=== PATIENT | female | born 1985 | race Caucasian/White ===

== ENCOUNTER 2018-05-30 11:56 | Inpatient (IN) | payer MEDICAID ==
[~2018-05-30] VITALS: Ht 162.6 cm; Wt 68.3 kg
[2018-05-30 12:06] VITALS: Ht 162.6 cm; Wt 68.3 kg
[2018-05-30 12:07] VITALS: BP 117/70; PULSE 89; RESP 17
--- NOTE | 2018-05-30 13:35 | HP ---
Date/Time of Note Date/Time of Note DATE: 05/30/18 TIME: 13:34 OB - History Hx of Present Free Text/Dictation @39+wks GA in labor : 4 Para: 3 Care: Good Care Ultrasounds: Normal mid trimester US Obstetrical Complications: None Medical Complications: None Past Family/Social History * Past Medical, Surgical, Family and Obstetric Histories reviewed from c remy. OB Admission Exam Vital Signs Vital Signs Vital Signs Date Temp Pulse Resp B/P (MAP) Pulse Ox O2 O2 Flow FiO2 Time Delivery Rate 05/30/18 98.1 89 17 117/70 Room Air 12:07 (86) Physical Exam Abdomen: WNL Cervical Dilatation: 2cm Effacement: 50% Station: -1 Membranes: Intact Heart Rate: 140's Accelerations: Accelerations Present Decelerations: No Decelerations Varibility: Moderate Contractions on Admission: 6-10 Minutes Apart OB Assessment/Plan Reason for admission: observation Plan: Expectant Management BART ADAME M.D. May 30, 2018 13:35
[2018-05-30] MEDS ORDERED: OXYTOCIN 30 UNITS/LR 500 ML IV PRN (14:30)
[2018-05-30] MEDS ORDERED: CARBOPROST 250 MCG INJ IM PRN (14:30)
[2018-05-30] MEDS ORDERED: MISOPROSTOL 200 MCG TAB PR PRN (14:30)
[2018-05-30] MEDS ORDERED: METHYLERGONOVINE 0.2 MG INJ IM PRN (14:30)
[2018-05-30] MEDS: LACTATED RINGER'S 1,000 ML IV SCH ×2 (15:49→22:44)
[2018-05-30] MEDS ORDERED: OXYTOCIN 30 UNITS/LR 500 ML IV SCH ×3 (22:00)
[2018-05-30] MEDS ORDERED: IBUPROFEN 600 MG TAB PO PRN (22:00)
[2018-05-30] MEDS ORDERED: LIDOCAINE 1% (MPF) 30 ML INJ INJ PRN (22:00)
[2018-05-30] MEDS ORDERED: AMPICILLIN 2 GM/NS (PMX) 100 ML IV ONE (22:00)
[2018-05-30] MEDS ORDERED: BUTORPHANOL 2 MG INJ IV PRN (22:00)
[2018-05-31] MEDS ORDERED: AMPICILLIN 1 GM/NS (PMX) 50 ML IV SCH (02:00)
[2018-05-31] MEDS ORDERED: OXYTOCIN 30 UNITS/LR 500 ML IV SCH (06:53)
--- NOTE | 2018-05-31 06:58 | LDN ---
Date/Time of Note Date/Time of Note DATE: 05/31/18 TIME: 06:56 Delivery Summary of a viable baby boy weighing 2925 grams or 6# 7 oz, 19" long, and with Apgars of 8/9. Weeks of Gestation 38w 2d Placenta Delivered: Spontaneously Meconium: none Episiotomy: No Perineal laceration: 2 Laceration repair: 2nd degree perineal laceration repaired with 2-0 chromic. Anesthesia type: Local Estimated blood loss: 200 Sponge & Needle done & correct: Yes All needle counts correct: Yes Any foreign bodies felt in the: No (VAGINA) Infant Delivery Information Sex Sex: male Apgars 1 Minute: 8 5 Minute: 9 Suctioning Nose & mouth suctioned at tiesha: Yes Delee suction performed: No Umbilical Cord Umbilical cord with: 3 Vessels Cord presentations: nuchal cord Nuchal cord present X: 1 Cord Blood was obtained: Yes Mother & Baby Disposition Disposition Mom & Baby to Maternity; Good: Yes Baby to NICU: No LOBO HENLEY MD May 31, 2018 06:58
[2018-05-31] MEDS ORDERED: MISOPROSTOL 200 MCG TAB PR PRN (07:00)
[2018-05-31] MEDS ORDERED: METHYLERGONOVINE 0.2 MG INJ IM PRN (07:00)
[2018-05-31] MEDS ORDERED: OXYTOCIN 30 UNITS/LR 500 ML IV PRN (07:00)
[2018-05-31] MEDS ORDERED: CARBOPROST 250 MCG INJ IM PRN (07:00)
[2018-05-31] MEDS ORDERED: BENZOCAINE 20% 56 ML SPRAY TOP PRN (07:00)
[2018-05-31] MEDS ORDERED: HYDROCODONE/APAP (5/325) TAB PO PRN (07:00)
[2018-05-31 10:30] VITALS: BP 98/52; PULSE 77; RESP 16
[2018-05-31] MEDS: IBUPROFEN 600 MG TAB PO SCH ×3 (11:39→23:47)
[2018-05-31 12:00] VITALS: BP 96/50; PULSE 83; RESP 18
[2018-05-31] MEDS: LACTATED RINGER'S 1,000 ML IV* SCH ×3 (12:29→22:53)
[2018-05-31 15:30] VITALS: BP 91/55; PULSE 85; RESP 20
[2018-05-31 20:00] VITALS: BP 106/57; PULSE 86; RESP 19
[2018-06-01 04:24] VITALS: BP 106/61; PULSE 76; RESP 20
[2018-06-01] MEDS: IBUPROFEN 600 MG TAB PO SCH ×4 (05:32→23:45)
[2018-06-01] MEDS: LACTATED RINGER'S 1,000 ML IV* SCH (07:11)
[2018-06-01 09:00] VITALS: BP 91/50; PULSE 78; RESP 18
[2018-06-01 15:46] VITALS: BP 99/52; PULSE 76; RESP 18
[2018-06-01 20:00] VITALS: BP 122/64; PULSE 74; RESP 20
--- NOTE | 2018-06-01 20:54 | PN ---
Date/Time of Note Date/Time of Note DATE: 06/01/18 TIME: 20:52 OB Subjective Subjective Subjective PPD# 1 Patient is doing well. She denies nausea, vomiting, shortness of breath, chest pain, headache. She has been ambulating without difficulty, tolerating regular diet. Pain is well controlled on current medications OB Objective Objective Objective Vital Signs Date Temp Pulse Resp B/P (MAP) Pulse Ox O2 O2 Flow FiO2 Time Delivery Rate 06/01/18 98.1 74 20 122/64 Room Air 20:00 (83) General: AAO X 3, comfortable, NAD, appropriate mood and affect. ABD: +BS. Soft, non-tender. Uterus 2 cm below umbilicus Flank: No CVA tenderness (B/L) LE: Mild edema. No clubbing, cyanosis, thigh or calf tenderness (B/L). Homans 'sign is negative Laboratory Tests Test 05/31/18 06:03 06/01/18 08:40 Lab Scanned Report REFERENCE LAB [id number] White Blood Count 8.3 10^3/ul Red Blood Count 3.93 10^6/ul Hemoglobin 10.0 g/dl Hematocrit 32.5 % Mean Corpuscular Volume 82.7 fl Mean Corpuscular Hemoglobin 25.4 pg Mean Corpuscular Hemoglobin Concent 30.8 g/dl Red Cell Distribution Width 18.7 % Platelet Count 147 10^3/UL Mean Platelet Volume 11.1 fl Immature Granulocytes % 0.500 % Neutrophils % 75.3 % Lymphocytes % 18.2 % Monocytes % 4.9 % Eosinophils % 0.7 % Basophils % 0.4 % Nucleated Red Blood Cells % 0.0 /100WBC Immature Granulocytes # 0.040 10^3/ul Neutrophils # 6.3 10^3/ul Lymphocytes # 1.5 10^3/ul Monocytes # 0.4 10^3/ul Eosinophils # 0.1 10^3/ul Basophils # 0.0 10^3/ul Nucleated Red Blood Cells # 0.0 10^3/ul OB Assessment/Plan Other plan: 32 years old -0-0-4 s/p normal vaginal delivery at 39+ weeks. PPD#1 - AF, VSS - Contraception methods with R/B/A/FR discussed - Continue care - Discharge home tomorrow - Rx and instruction given - Follow up in 2 and 6 weeks at clinic JANAE BARBOSA Jun 01, 2018 20:54
--- NOTE | 2018-06-01 20:54 | DS ---
Date/Time of Note Date/Time of Note DATE: 06/01/18 TIME: 20:54 Obstetrical Discharge Record Final Diagnosis Final Diagnosis: Term delivered Other Final Diagnosis 32 years old -0-0-4 s/p normal vaginal delivery at 39+ weeks. PPD#1. She is ambulating and tolerating regular diet. She is voiding without difficulty. Pain is controlled on current medication. - AF, VSS - Contraception methods with R/B/A/FR discussed - Continue care - Discharge home tomorrow - Rx and instruction given - Follow up in 2 and 6 weeks at clinic Vaginal Delivery Obstetrical Delivery: Spontaneous Condition on Discharge Physical Assessment Voiding: Yes Bowel Movement: Yes Breast: Soft, non-tender Fundus: Firm Calf Tenderness: No Patient Condition: Stable JANAE BARBOSA Jun 01, 2018 20:54
[2018-06-02 03:08] VITALS: BP 99/64; PULSE 74; RESP 20
[2018-06-02] MEDS: IBUPROFEN 600 MG TAB PO SCH ×2 (05:43→11:25)
[2018-06-02] MEDS ORDERED: DIPHTH/TET/ACEL PERTUSS (ADULT) 0.5 ML VIAL IM* ONE (09:00)
[2018-06-02 11:00] VITALS: BP 96/61; PULSE 81; RESP 16
--- NOTE | 2018-06-06 11:22 | DELSUM ---
Delivery Summary A-C Datetime Report Generated by N: 06/06/2018 11:20 DELIVERY PERSONNEL Floor Technician: Dries, Bob MATERNAL INFORMATION Delivery Anesthesia: Local Medications in Delivery: LR WITH 30 UNITS PITOCIN Delivery QBL (ml): 200 Placenta Cultured: No Maternal Complications: None LABOR SUMMARY EDC: 06/12/2018 00:00 No. Babies in Womb: 1 (Annotations: Data stored by [facility] on behalf of user) Attempted: No Labor Anesthesia: None LABOR INFORMATION Reason for Induction: Other Reason for Induction- Other: BLEEDING, VARIABLES. Onset of Labor: 05/30/2018 21:40 Complete Dilatation: 05/31/2018 06:21 Oxytocin: Induction Group B Beta Strep: Positive Antibiotics # of Doses: 2 Antibiotics Time of Last Dose: 05/31/2018 03:08 Steroids Given: None Reason Steroids Not Administered: Not Applicable MEMBRANES Membranes Rupture Method: Spontaneous Rupture of Membranes: 05/31/2018 06:04 Length of Rupture (hr): 0.32 Amniotic Fluid Color: Bloody Amniotic Fluid Amount: Moderate Amniotic Fluid Odor: None STAGES OF LABOR Stage 1 hr: 8 Stage 1 min: 41 Stage 2 hr: 0 Stage 2 min: 2 Stage 3 hr: 0 Stage 3 min: 9 Total Time in Labor hr: 8 Total Time in Labor min: 52 VAGINAL DELIVERY Episiotomy: None Laceration Extension: Second Degree Laceration Type: Perineal Laceration Repair: Yes Initial Vag Sponge Count: 10 Final Vag Sponge Count: 10 Initial Vag Sharps Count: 1 Final Vag Sharps Count: 2 Sponge Count Correct: Yes; Vaginal Sweep Performed Sharps Count Correct: Yes BABY A INFORMATION Delivery Date/Time: 05/31/2018 06:23 Method of Delivery: Vaginal Born in Route : No : N/A Forceps: N/A Vacuum Extraction: N/A Shoulder Dystocia : N/A SHOULDER DYSTOCIA BABY A Infant Delivery Date/Time: 05/31/2018 06:23 PRESENTATION/POSITION BABY A Presentation: Cephalic Cephalic Presentation: Vertex Vertex Position: Left Occipital Anterior Breech Presentation: N/A PLACENTA INFORMATION BABY A Placenta Delivery Time : 05/31/2018 06:32 Placenta Method of Delivery: Spontaneous Placenta Status: Delivered SCORES BABY A Heart Rate 1 min: >100 bpm Resp Effort 1 min: Good Cry Reflex Irritability 1 min: Cough/Sneeze/Pulls Away Muscle Tone 1 min: Active Motion Color 1 min: Blue/Pale Resuscitation Effort 1 min: Tactile Stimulation SCORE 1 MIN: 8 Heart Rate 5 min: >100 bpm Resp Effort 5 min: Good Cry Reflex Irritability 5 min: Cough/Sneeze/Pulls Away Muscle Tone 5 min: Active Motion Color 5 min: Body [address], Extremit Blue Resuscitation Effort 5 min: Tactile Stimulation SCORE 5 MIN: 9 INFANT INFORMATION BABY A Gestational Age at Delivery: 38.2 Gestational Status: Early Term- 37- 38.6 Weeks Infant Outcome : Liveborn Infant Condition : Stable Sex: Male IDENTIFICATION/MEDS BABY A ID Band Number: [id number] ID Band Location: Right Leg; Left Arm Sensor Applied: Yes Sensor Number: [id number] Sensor Location : Cord Clamp Vitamin K Given : Not Given Erythromycin Given: Not Given WEIGHT/LENGTH BABY A Infant Birthweight (gm): 2925 Infant Weight (lb): 6 Weight (oz): 7 Infant Length (in): 19.00 Length (cm): 48.26 CORD INFORMATION BABY A No. Cord Vessels: 3 Nuchal Cord : Around Neck x1, Loose Cord Blood Taken: Yes Suction: Mouth; Nose ASSESSMENT BABY A Complications: Multiple Variable Decels Physical Findings at Delivery: Within Normal Limits Respirations: Appears Normal Hr Systems Analyst/ALS Called : No Care By: VALERIE PIERSON Transferred To: Remains with Mother
== END 2018-06-02 16:44 | disposition home or self-care (01) | DRG 807 ==
LOC: OBT 11:56 → L-D 11:56 → OBT 13:31 → L-D 13:53 → PP1 05-31 10:25
PROVIDERS: ADMIT Obstetrics & Gynecology; ATTEND Obstetrics & Gynecology
PROC: 10E0XZZ Delivery of Products of Conception, External Approach (ICD-10-PCS; principal; 2018-05-31)
PROC: 0KQM0ZZ Repair Perineum Muscle, Open Approach (ICD-10-PCS; 2018-05-31)
DX: O69.81X0 Labor and delivery complicated by cord around neck, without compression, not applicable or unspecified (principal); Z37.0 Single live birth; O70.1 Second degree perineal laceration during delivery; Z3A.38 38 weeks gestation of pregnancy
CPT/HCPCS: 76818; 85025; 85610; 85730; 86592; 86850; 86900; 86901; 87340; 90686; 90715; G0463; J0290; J2590; J7120